=== PATIENT | female | born 1990 | race Caucasian/White ===

== ENCOUNTER 2021-11-19 21:31 | Emergency (ER) | payer OTHER, MEDICAID, SELFPAY ==
[2021-11-19 21:38] VITALS: BP 133/68; PULSE 90; RESP 16; TEMP 37.1; O2SAT 98
--- NOTE | 2021-11-19 22:29 | ED.TRAUMA ---
HPI - Trauma General Chief Complaint: Extremity Injury, Upper Stated Complaint: rt upper arm pain Time Seen by Provider: 11/19/21 21:53 Source: patient Mode of arrival: Ambulatory Limitations: no limitations History of Present Illness HPI narrative: The patient has had a cystic skin lesion on her right upper arm for about 10 years. She had the site evaluated by a surgeon about a year ago, no action was taken. Over the last days the site is increased in size, there is discharge from the site. The site is quite painful. There is slight erythema around the site. She has no fever. She has no chronic skin disease, no prior history of abscesses. Related Data Previous Rx's Medication Instructions Recorded sulfamethoxazole 800 1 tab PO DAILY 7 Days tab 11/20/21 mg-trimethoprim 160 mg tablet Allergies Allergy/AdvReac Type Severity Reaction Status Date / Time penicillin G [PENICILLIN G] Allergy Unknown Verified 11/20/21 00:42 Review of Systems Review of Systems Narrative: See HPI. Patient History Medical History (Updated 11/20/21 @ 00:22 by Evan Silverio MD) No chronic diseases present Surgical History (Updated 11/20/21 @ 00:16 by Evan Silverio MD) No significant past surgical history Exam Initial Vital Signs Initial Vital Signs: Vital Signs Temperature 98.7 F 11/19/21 21:38 Pulse Rate 90 11/19/21 21:38 Respiratory Rate 16 11/19/21 21:38 Blood Pressure 133/68 11/19/21 21:38 Pulse Oximetry 98 11/19/21 21:38 Const General: cooperative, healthy appearing, comfortable, well developed and well groomed Skin Other: Infected sebaceous cyst in the right upper lateral arm. The cystic structures about 2 cm in diameter, with purulent drainage from a gap at the surface. There is slight erythema around the site, no lymphangitis. Neuro General: patient alert, patient awake and patient oriented x3 Other: Right arm motor and sensory exam is normal. Extrem Other: Full range of motion the right shoulder and right arm. Right arm sebaceous cyst as detailed above. Psych Other: Anxious. Quite upset. Procedures Abscess I/D I&D #1: Time of procedure: 00:17 Site: upper extremity (Right deltoid region.) Side (if applicable): right Local Anesthetic: lidocaine 1% Amount of anesthesia used (mL): 2 Technique: incised with #11 blade and other (The contents of the sebaceous cyst as well as a portion of the cystic sac were removed.) Amount of fluid expressed (mL): 1 Irrigation: Yes Packing used?: iodoform Complications: pain Course Course Course Narrative: After the abscess was evacuated and packed, a bandage was placed by the patient's nurse. She was started on Septra DS. Toradol was given for pain. She does to being quite anxious, she did have difficulty with the treatment. She is now doing much better. She should have the wound checked in 2-3 days. Orders Ordered: ED Orders 11/19/21 22:30 Wound Culture and Gram Stain Stat Discontinued Medications Ketorolac Tromethamine (Ketorolac 30 Mg/Ml Vial) 30 mg IM NOW ONE Stop: 11/20/21 00:13 Last Admin: 11/20/21 00:17 Dose: 30 mg Documented by: ANDRIA Lidocaine HCl (Lidocaine 1% Mdv) 2 ml INJ INTRA-OP ONE Stop: 11/19/21 22:25 Last Admin: 11/20/21 00:44 Dose: 2 ml Documented by: ANDRIA Trimethoprim/Sulfamethoxazole (Trimeth/Sulfa 160/800 (Ds) Tablet) 1 tab PO NOW ONE Stop: 11/20/21 00:12 Last Admin: 11/20/21 00:17 Dose: 1 tab Documented by: ANDRIA Vital Signs Vital signs: Vital Signs - 8 hr 11/19/21 21:38 11/20/21 00:47 Temperature 98.7 F Pulse Rate 90 98 H Respiratory Rate 16 24 Blood Pressure 133/68 131/78 Pulse Oximetry 98 97 Discharge Plan Departure Patient Disposition: Home Clinical Impression: Infected sebaceous cyst Instructions: Epidermal Cyst Activity Restrictions/Additional Instructions: A sebaceous cyst is a secretory cyst. These are present across the body. Occasionally they get blocked and can gradually become larger. They can become infected, which is what happened to you. I have over the site and drained the abscess. The site is packed to assure the site continues the drain and heal. If you do not have a local doctor, follow-up at the walk-in clinic in 2-3 days to have the wound re-evaluated Packing will be pulled within the next few days, then you will need a simple bandage on your arm. Septra DS 2 times daily, this is an antibiotic. Advil 3 tablets every 6 hours as needed for pain. If you develop fever or increased redness at the site return here. I will give you contact information for Dr. Bran, a local surgeon. Follow up with her in about 1 month to assure the cyst is completely eradicated. Prescriptions: New sulfamethoxazole-trimethoprim 800-160 mg tablet 1 tab PO DAILY 7 Days 0RF Referrals: Savanah Bran MD [Physician] -
[2021-11-20] MEDS: TRIMETH/SULFA 160/800 (DS) TABLET 1 TAB PO (00:17)
[2021-11-20] MEDS: KETOROLAC 30 MG/ML VIAL IM (00:17)
[2021-11-20] MEDS: LIDOCAINE 1% MDV 2 ML INJ (00:44)
[2021-11-20 00:47] VITALS: BP 131/78; PULSE 98; RESP 24; O2SAT 97
== END 2021-11-20 00:48 | disposition home or self-care (01) ==
PROVIDERS: Emergency Provider Emergency Medicine
DX: L72.3 Sebaceous cyst (principal)
CPT/HCPCS: 10060; 87070; 87075; 87077; 87147; 87186; 87205; 96372; 99283; 99284; J1885

== ENCOUNTER 2024-04-06 07:07 | Emergency (ER) | payer OTHER, MEDICAID, SELFPAY ==
[2024-04-06 07:30] VITALS: BP 125/59; PULSE 104; O2SAT 97
[2024-04-06 07:32] VITALS: BP 125/59; PULSE 111; RESP 18; TEMP 36.6; O2SAT 97; BMI 26.6
--- NOTE | 2024-04-06 07:33 | ED.GENADULT ---
HPI - General Adult General Chief complaint: Skin/Abscess/Foreign Body Stated complaint: bite by spider elmo rt eye Time Seen by Provider: 04/06/24 07:32 History of Present Illness HPI narrative: Patient is a 33-year-old female with no significant past medical history presenting to the ED for evaluation of insect bite to the face, states that she noticed an insect bite to her right side of her face near the right eyebrow. States that it has progressively gotten slightly red and swollen. But she denies any pain with eye motion, denies any foreign body sensation, denies any loss of vision or blurry vision. Does not wear any contacts or corrective lenses. Denies any trauma or falls. She states that she has not tried any medication to help for this, states that due to persistent symptoms decided come into the ED for further evaluation treatment. Denies any other symptoms at this time Related Data Previous Rx's Medication Instructions Recorded sulfamethoxazole 800 1 tab PO BID 7 days #14 tabs 04/06/24 mg-trimethoprim 160 mg tablet (Bactrim DS) Allergies Allergy/AdvReac Type Severity Reaction Status Date / Time penicillin G [PENICILLIN G] Allergy Unknown Verified 11/22/21 11:46 Review of Systems Review of Systems Narrative: HEENT: Denies headache, eye drainage, eye irritation, head trauma, sore throat, voice change, positive eyelid swelling to the right Cardiovascular: Denies any chest pain, palpitations, shortness of breath, tachycardia Respiratory: Denies any shortness of breath, cough, wheeze, stridor GI/: Denies any abdominal pain, nausea, vomiting, diarrhea, bright red blood per rectum, melanotic stools, urinary frequency, urinary retention, dysuria, hematuria MSK: Denies any joint pain, muscle pains, swelling Skin: Denies any rashes, lesions, discoloration Neuro: Denies any headache, lightheadedness, dizziness, fainting, weakness Psych: Denies SI/HI Patient History Medical History (Updated 04/06/24 @ 08:08 by Luis Felipe Ballard DO) Wound check, abscess No chronic diseases present Surgical History No significant past surgical history Social History Smoking Status: Current every day smoker Smoking Status: Current every day smoker Exam Narrative Exam Narrative: General: Cooperative, comfortable, well-developed, not in acute distress HEENT: Normocephalic, atraumatic, PERRLA, normal sclera, mild edema and erythema noted to the right upper eyelid, there is no streaking, there is what appears to be healed scab to the upper eyebrow visual acuity 20/20 both eyes, right eye tonometry: 15 mmHg , left eye tonometry: 13 mmHg Neck: Active full range of motion, atraumatic Chest: Normal to inspection, negative crepitus, no overlying erythema ecchymosis Respiratory: Normal respiratory effort, not in acute respiratory distress, clear to auscultation bilaterally negative cough, wheeze, tachypnea, rhonchi, rales Cardiology: Regular rate rhythm negative gallop, murmur, rubs GI/: Normal to inspection, soft, nonrigid, no tenderness to palpation, exam deferred MSK: Full range of active range of motion of all 4 extremities, atraumatic Skin: No rashes lesions noted Neuro: Alert awake oriented x3, moves all 4 extremities spontaneously, cranial nerves intact, able to answer all questions appropriately follows commands appropriately Psych: Cooperative, negative suicidal or homicidal ideations Initial Vital Signs Initial Vital Signs: Vital Signs Pulse Rate 104 H 04/06/24 07:30 Blood Pressure 125/59 L 04/06/24 07:30 Pulse Oximetry 97 04/06/24 07:30 Course Orders Ordered: Discontinued Medications Diphtheria/Tetanus/Acell Pertussis (Tet,Diph,Pertuss(Acell),Vac/Pf 0.5 Ml Syringe) 0.5 ml IM .ONCE ONE Stop: 04/06/24 07:40 Last Admin: 04/06/24 07:58 Dose: 0.5 ml Documented By: VIET Fluorescein Sodium (Fluorescein 1 Mg Strip) 1 mg EYE-BOTH NOW ONE Stop: 04/06/24 07:37 Last Admin: 04/06/24 07:59 Dose: 1 mg Documented By: VIET Proparacaine HCl (Proparacaine 0.5% Ophth Cecilia) 1 drops EYE-BOTH NOW ONE Stop: 04/06/24 07:37 Last Admin: 04/06/24 07:57 Dose: 1 drops Documented By: VIET Trimethoprim/Sulfamethoxazole (Trimeth/Sulfa 160/800 (Ds) Tablet) 1 tab PO NOW ONE Stop: 04/06/24 08:06 Last Admin: 04/06/24 08:13 Dose: 1 tab Vital Signs Vital signs: Vital Signs - 8 hr 04/06/24 07:30 04/06/24 07:30 04/06/24 07:32 Temperature 97.9 F Pulse Rate 104 H 111 H Respiratory Rate 18 Blood Pressure 125/59 L 125/59 L Pulse Oximetry 97 97 Oxygen Delivery Method Room Air 04/06/24 08:22 Temperature Pulse Rate 99 H Respiratory Rate 18 Blood Pressure 124/60 Pulse Oximetry 97 Oxygen Delivery Method Room Air Medical Decision Making Differential Diagnosis Differential Diagnosis: Preseptal cellulitis, cellulitis, periorbital cellulitis Condition is:: Improved Medical Records Medical records reviewed: Yes I reviewed the patient's medical records. Lab Data Lab results reviewed: Yes I reviewed the patient's lab results. MDM Narrative Medical decision making narrative: Patient is a 33-year-old female no significant past medical history presenting with swelling and redness around the right eye after possible insect bite several days ago. Patient without any pain with extraocular motion, patient without any visual loss, physical exam more consistent with cellulitis/preseptal cellulitis. Patient will be started on oral antibiotics and instructed to follow up in outpatient setting. Patient was given strict return precautions he verbalized understanding of this and will be discharged home with outpatient follow-up. Discharge Plan Departure Clinical Impression: Preseptal cellulitis of right upper eyelid Instructions: Sulfamethoxazole/Trimethoprim (By mouth) Prescriptions: New sulfamethoxazole-trimethoprim [Bactrim DS] 800-160 mg tablet 1 tab PO BID 7 Days Qty: 14 0RF Referrals: Miscellaneous,Doctor, [Primary Care Provider] -
[2024-04-06] MEDS: PROPARACAINE 0.5% OPHTH SOL 1 DROPS EYE-BOTH (07:57)
[2024-04-06] MEDS: TET,DIPH,PERTUSS(ACELL),VAC/PF 0.5 ML SYRINGE IM (07:58)
[2024-04-06] MEDS: FLUORESCEIN 1 MG STRIP EYE-BOTH (07:59)
[2024-04-06] MEDS: TRIMETH/SULFA 160/800 (DS) TABLET 1 TAB PO (08:13)
[2024-04-06 08:22] VITALS: BP 124/60; PULSE 99; RESP 18; O2SAT 97
== END 2024-04-06 08:29 | disposition home or self-care (01) ==
PROVIDERS: Emergency Provider Student in an Organized Health Care Education/Training Program
DX: L03.213 Periorbital cellulitis (principal); Z23 Encounter for immunization
CPT/HCPCS: 90471; 99283; 99284; 90715

== ENCOUNTER 2025-01-02 20:57 | Emergency (ER) | payer OTHER, SELFPAY ==
[2025-01-02 21:15] VITALS: BP 130/59; PULSE 107; RESP 14; TEMP 36.6; O2SAT 97; BMI 28.3
== END 2025-01-03 01:37 | disposition left against medical advice (07) ==
PROVIDERS: Emergency Provider Emergency Medicine
DX: R55 Syncope and collapse (principal)
CPT/HCPCS: 99281